=== PATIENT | male | born 1975 | race Caucasian/White ===

== ENCOUNTER 2016-07-06 19:01 | Emergency (ER) | payer SELFPAY ==
[2016-07-06] MEDS ORDERED: ONDANSETRON ODT 4 MG TAB ONE (19:52)
[2016-07-06] MEDS ORDERED: DILAUDID 1 MG/ML AMP ONE (19:52)
== END 2016-07-06 20:58 | disposition home or self-care (01) ==
LOC: ER 19:01
DX: M25.461 Effusion, right knee (principal); S80.01XA Contusion of right knee, initial encounter; G89.11 Acute pain due to trauma; W22.8XXA Striking against or struck by other objects, initial encounter; Y99.0 Civilian activity done for income or pay; E11.9 Type 2 diabetes mellitus without complications; Z79.4 Long term (current) use of insulin; F17.200 Nicotine dependence, unspecified, uncomplicated
CPT/HCPCS: 96372